=== PATIENT | female | born 1995 | race Caucasian/White ===

== ENCOUNTER 2019-11-13 00:26 | Emergency (ER) | payer MEDICAID, SELFPAY ==
[2019-11-13 00:52] VITALS: BP 126/83; PULSE 111; RESP 18; TEMP 36.8; O2SAT 98
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
[2019-11-13 02:16] VITALS: BP 122/80; PULSE 103; RESP 20; O2SAT 99
== END 2019-11-13 02:44 | disposition home or self-care (01) ==
PROVIDERS: Emergency Provider Emergency Medicine
DX: S00.83XA Contusion of other part of head, initial encounter (principal); Y04.2XXA Assault by strike against or bumped into by another person, initial encounter; F17.210 Nicotine dependence, cigarettes, uncomplicated
CPT/HCPCS: 12345; 70486; 99282

== ENCOUNTER → 2020-06-27 18:25 | Outpatient (BNVA) | payer MEDICAID, SELFPAY | PROVIDERS: Visit Provider Nurse Practitioner Family | DX: Z20.828 Contact with and (suspected) exposure to other viral communicable diseases (principal) | CPT/HCPCS: 87635 ==

== ENCOUNTER 2021-02-07 19:57 | Emergency (ER) | payer MEDICAID, SELFPAY ==
[2021-02-07 20:03] VITALS: BP 114/68; PULSE 93; RESP 16; TEMP 36.9; O2SAT 97; BMI 19.3
--- NOTE | 2021-02-07 20:08 | W.ED.EYEPROB ---
HPI - Eye Problem General: Chief complaint: Eye Problems Stated complaint: eye problems Time Seen by Provider: 02/07/21 20:02 History of Present Illness: HPI Narrative: Patient is a 25-year-old female comes to the ED with left eye redness and pain. Patient says around 4:00 in the morning last night she woke up and she eye and says it was burning a little bit. Today her eyes been red and painful and she describes the pain as a burning pain. Denies any itching of her eye. She says the burning pain is on the lateral aspect of the left eye. She reports rubbing on the eye all day today. Denies any foreign body getting into her eye. Patient did say she has some poison rafaela on her right foot and is unsure if maybe she transferred some poison rafaela from her foot up to her eye. Her eye has been watering a lot given her some blurry vision but denies any other vision changes. Patient says she has a pruritic rash on her right foot since from poison rafaela after being outside and coming in contact with that couple days ago. Associated symptoms: Denies fever(s), headache(s), nausea, neck pain or vomiting Review of Systems Const: Denies: fever(s), chills or fatigue Eyes: Reports: blurry vision (due to eye watering), eye discomfort and eye redness; Denies: change in vision ENMT: Denies: throat pain, odynophagia, nasal discharge or nasal congestion Card: Denies: chest pain, palpitations, edema, swelling of feet/ankles, dyspnea on exertion or orthopnea Resp: Denies: dyspnea, productive cough or non-productive cough GI: Denies: abdominal pain, nausea, vomiting, diarrhea, constipation or hematochezia : Denies: flank pain, dysuria or hematuria Musc: Denies: neck pain, back pain or extremity swelling Skin/Breast: Reports: rash (Pruritic rash on right foot after coming in contact with poison rafaela) and pruritus; Denies: new lesions Neuro: Denies: headache(s), numbness in extremities or weakness in extremities PFS ED PFSH: Social History Smoking and tobacco status: current every day smoker Female Reproductive History: Date of last menstrual period: 10/14/19 Physical Exam Const: COMMON NORMALS: no acute distress, patient oriented x3, healthy appearing and alert GENERAL APPEARANCE: cooperative and comfortable HENMT: COMMON NORMALS: normocephalic HEAD & SCALP: normocephalic MOUTH: Normal oral and palatal mucosa present THROAT: posterior oropharynx normal and uvula midline Eye: COMMON NORMALS: Equal, round and reactive pupils present and EOMs intact bilaterally PERIORBITAL: periorbital findings normal EYELID: eyelids normal CONJUNCTIVA: Yes conjunctival abnormal positive left conjunctival injection diffuse PUPIL: Yes Equal, round and reactive pupils present SLIT LAMP EXAM: Yes slit lamp exam performed with fluorescein OTHER: Lamp exam with fluorescein was performed and it did show a corneal abrasion. Neck/C-Spine: COMMON NORMALS: supple GENERAL: Yes normal visual inspection Resp: COMMON NORMALS: normal respiratory effort, No retractions, No use of accessory muscles and clear to auscultation bilaterally AUSCULTATION: clear to auscultation bilaterally Cardio: COMMON NORMALS: regular rate, regular rhythm, S1 normal heart sound present, S2 normal heart sound present, No gallops present (Cardio), No clicks present (Cardio), No murmurs present (Cardio) and Peripheral pulses 2+ throughout RATE: regular rate RHYTHM: regular rhythm HEART SOUNDS: S1 normal heart sound present and S2 normal heart sound present PERIPHERAL PULSES: Peripheral pulses 2+ throughout GI: COMMON NORMALS: Normal to inspection, nondistended, normoactive bowel sounds present, Soft to palpation, non-tender and no masses PALPATION: Yes Soft to palpation : COMMON NORMALS: Yes no CVA tenderness BLADDER/KIDNEY EXAM: Yes no CVA tenderness Back/Pelvis: COMMON NORMALS: no CVA tenderness Extremity: COMMON NORMALS: normal to inspection Neuro: COMMON NORMALS: patient oriented x3 and moves all extremities SENSORIUM/ORIENTATION: Yes alert Skin: NARRATIVE SKIN EXAM: Patient has visible right pruritic rash that is linear appears to be poison rafaela on top of right foot. GENERAL SKIN EXAM: dry skin Course Vital Signs: Vital signs: Vital Signs Temperature 98.5 F 02/07/21 20:03 Pulse Rate 91 02/07/21 21:03 Respiratory Rate 17 02/07/21 21:03 Blood Pressure 104/65 02/07/21 21:03 Pulse Oximetry 100 02/07/21 21:03 MDM - Eye Problem MDM Narrative: Medical decision making narrative: Patient is a 25-year-old female comes to the ED with left eye redness and pain and poison rafaela on right foot. Patient's eye exam revealed a corneal abrasion and exam of right foot showed poison rafaela like rash. patient was given a dose of Maxitrol eye ointment and a shot of triamcinolone IM to treat poison rafaela while here in the ED. patient diagnosed with corneal abrasion and poison rafaela dermatitis. Patient was discharged home with a prescription for Maxitrol eye ointment and given the contact information for Dr[facility]. She was told to follow-up with Dr. De León on 48 hours or return to ED if worsening of symptoms. Patient understood and agreed with plan. Discharge Plan Discharge Patient Disposition: Home Clinical Impression: Poison rafaela dermatitis Corneal abrasion Qualifiers: Encounter type: initial encounter Laterality: left Qualified Code(s): S05.02XA - Injury of conjunctiva and corneal abrasion without foreign body, left eye, initial encounter Condition: Stable Prescriptions: New Maxitrol 3.5 mg/g-10,000 unit/g-0.1 % ointment 1 applic ophthalmic (eye) Q6H 7 Days Qty: 3.5 RF: 0 No Action Naprosyn 500 mg tablet 500 mg PO BID PRN (Reason: pain) Qty: 20 RF: 0 Discharge Orders: Discharge ED (Routine); Ordered 02/07/21 Ordered By: Luis M Motley Discharge Diet: Regular Discharge Activity: Resume usual activity Patient Instructions: Corneal Abrasion (ED), Poison Rafaela, [place], and [place] - Adult Activity Restrictions/Additional Instructions: Follow-up with medical provider as directed. If your pain is not improving or worsening symptoms after 48 hours return to the ED or contact Dr[facility]. Call Dr[facility] -phone number is [phone]. Address is [facility] [address] Jose G Swan. take medications as prescribed. Return to the ER or your medical provider if condition worsens. Please read and understand discharge instructions. If any questions, please ask. Coding Level of Care Code ED Global Director [employer] for Edna Fwlizz Exam Comprehensive
[2021-02-07] MEDS: eye irrigation 30 mL Btl EYE-LEFT (20:23)
[2021-02-07] MEDS: fluorescein 1 mg Strip EYE-LEFT (20:23)
[2021-02-07] MEDS: tetracaine 0.5% Op Soln 4 mL Btl 1 DROP EYE-LEFT (20:23)
[2021-02-07 21:03] VITALS: BP 104/65; PULSE 91; RESP 17; O2SAT 100
== END 2021-02-07 21:00 | disposition home or self-care (01) ==
PROVIDERS: Emergency Provider Physician Assistant
DX: S05.02XA Injury of conjunctiva and corneal abrasion without foreign body, left eye, initial encounter (principal); L23.7 Allergic contact dermatitis due to plants, except food; F17.210 Nicotine dependence, cigarettes, uncomplicated; X58.XXXA Exposure to other specified factors, initial encounter
CPT/HCPCS: 99283

== ENCOUNTER → 2022-09-27 14:00 | Outpatient (BNVA) | payer MEDICAID, SELFPAY | PROVIDERS: Visit Provider Obstetrics & Gynecology | DX: Z01.419 Encounter for gynecological examination (general) (routine) without abnormal findings (principal) | CPT/HCPCS: 87624 ==

== ENCOUNTER → 2022-12-23 13:32 | Outpatient (BNVA) | payer MEDICAID, SELFPAY | PROVIDERS: Visit Provider Obstetrics & Gynecology | DX: Z32.00 Encounter for pregnancy test, result unknown (principal) | CPT/HCPCS: 81025 ==

== ENCOUNTER → 2022-12-27 14:33 | Outpatient (BNVA) | payer MEDICAID, SELFPAY | PROVIDERS: Visit Provider Obstetrics & Gynecology | DX: Z34.90 Encounter for supervision of normal pregnancy, unspecified, unspecified trimester (principal) | CPT/HCPCS: 80307; 84315; 85027; 86592; 86762; 86803; 86850; 86900; 87086; 87340; 87806 ==

== ENCOUNTER → 2023-01-17 10:59 | Outpatient (BNVA) | payer MEDICAID, SELFPAY | PROVIDERS: Visit Provider Obstetrics & Gynecology | DX: Z36.87 Encounter for antenatal screening for uncertain dates (principal) | CPT/HCPCS: 76815 ==

== ENCOUNTER → 2023-02-01 14:00 | Outpatient (BNVA) | payer MEDICAID, SELFPAY | PROVIDERS: Visit Provider Obstetrics & Gynecology | DX: Z34.80 Encounter for supervision of other normal pregnancy, unspecified trimester (principal) | CPT/HCPCS: 81000; 87491; 87591 ==

== ENCOUNTER → 2023-02-23 13:22 | Outpatient (BNVA) | payer MEDICAID, SELFPAY | PROVIDERS: Visit Provider Obstetrics & Gynecology | DX: Z34.90 Encounter for supervision of normal pregnancy, unspecified, unspecified trimester (principal) | CPT/HCPCS: 76805 ==

== ENCOUNTER → 2023-03-20 13:39 | Outpatient (BNVA) | payer MEDICAID, SELFPAY | PROVIDERS: Visit Provider Nurse Practitioner Women's Health | DX: Z34.80 Encounter for supervision of other normal pregnancy, unspecified trimester (principal) | CPT/HCPCS: 81000 ==

== ENCOUNTER → 2023-04-18 09:28 | Outpatient (BNVA) | payer MEDICAID, SELFPAY | PROVIDERS: Visit Provider Obstetrics & Gynecology | DX: Z34.80 Encounter for supervision of other normal pregnancy, unspecified trimester (principal) | CPT/HCPCS: 81000; 82950; 85025 ==

== ENCOUNTER → 2023-05-01 13:31 | Outpatient (BNVA) | payer MEDICAID, SELFPAY | PROVIDERS: Visit Provider Nurse Practitioner Women's Health | DX: Z34.80 Encounter for supervision of other normal pregnancy, unspecified trimester (principal); Z98.891 History of uterine scar from previous surgery | CPT/HCPCS: 81000 ==

== ENCOUNTER → 2023-05-10 08:25 | Outpatient (BNVA) | payer MEDICAID, SELFPAY | PROVIDERS: Visit Provider Obstetrics & Gynecology | DX: Z34.80 Encounter for supervision of other normal pregnancy, unspecified trimester (principal) | CPT/HCPCS: 81000; 87491; 87591 ==

== ENCOUNTER → 2023-05-29 08:05 | Outpatient (BNVA) | payer MEDICAID, SELFPAY | PROVIDERS: Visit Provider Obstetrics & Gynecology | DX: Z34.80 Encounter for supervision of other normal pregnancy, unspecified trimester (principal) | CPT/HCPCS: 76816 ==

== ENCOUNTER → 2023-06-12 13:00 | Outpatient (BNVA) | payer MEDICAID, SELFPAY | PROVIDERS: Visit Provider Obstetrics & Gynecology | DX: Z34.80 Encounter for supervision of other normal pregnancy, unspecified trimester (principal) | CPT/HCPCS: 81000; 87081 ==

== ENCOUNTER → 2023-06-27 16:07 | Outpatient (BNVA) | payer MEDICAID, SELFPAY | PROVIDERS: Visit Provider Obstetrics & Gynecology | DX: Z34.80 Encounter for supervision of other normal pregnancy, unspecified trimester (principal) | CPT/HCPCS: 81000 ==

== ENCOUNTER → 2023-07-04 14:34 | Outpatient (BNVA) | payer MEDICAID, SELFPAY | PROVIDERS: Visit Provider Obstetrics & Gynecology | DX: Z34.80 Encounter for supervision of other normal pregnancy, unspecified trimester (principal) | CPT/HCPCS: 81000 ==

== ENCOUNTER 2023-07-08 21:48 | Inpatient (IN) | payer MEDICAID, SELFPAY ==
[2023-07-08] VITALS (26 sets, daily range): BP systolic 106–120; BP diastolic 54–79; PULSE 75–100; RESP 17; O2SAT 88–100; BMI 27.1
--- NOTE | 2023-07-08 22:51 | P.HP_ITS ---
Providers/Chief Complaint Admitting Physician: Rina Poe DO Primary FOREST MANAGEMENT TEACHER: Dr. Reyna Chief Complaint: Contractions HPI FOREST MANAGEMENT TEACHER History of Present Illness Rosemary Hodge is a 27 year old female G2, P1 at 40 weeks gestation with DAVID 07/08/2023 admitted to labor and delivery with complaints of contractions increasing in intensity onset 5 AM. Patient admits to good movement, denies leakage of fluid or vaginal bleeding. Patient has history of previous due to decreased heart rate and failure of the head to descend. Patient desires to and has been counseled on risks versus benefit. We have discussed possibility of emergency if heart rate decels or severe vaginal bleeding occurs. Patient understands. Present Details : 2 Para: 1 Labs Rubella: Immune RPR: Negative GBS: Negative Review of Systems Const: Denies: fever(s), change in appetite or fatigue Eyes: Denies: change in vision, blurry vision, blind spots, floaters or seeing flashes Card: Denies: palpitations, irregular heart rhythm, edema, lightheadedness, syncope or pre-syncope Resp: Denies: dyspnea or pain on inspiration GI: Denies: abdominal pain, nausea, vomiting, heartburn or GI cramping : Denies: difficulty voiding, dysuria, genital pruritis, vaginal odor, vaginal bleeding, vaginal discharge or other (contractions) Musc: Denies: back pain, limited range of motion or muscle cramps Skin/Breast: Denies: rash, pruritus, breast tenderness or nipple discharge Neuro: Denies: headache(s) or numbness in extremities Psych: Denies: anxiety, depression, mood swings or panic attacks Endo: Denies: polyuria, tired all the time or hot flashes Vinicius/Lymph: Denies: easy bruising or petechiae Medications/Allergies Home Medications Medication Instructions Recorded Confirmed Last Taken Type No Known Home Medications 12/27/22 07/08/23 Unknown History Allergies Allergy/AdvReac Type Severity Reaction Status Date / Time No Known Allergies Allergy Verified 07/08/23 21:07 PFSH FOREST MANAGEMENT TEACHER PFSH: Medical History Psychiatric care Family History Grandmother Diabetes Paternal Hypertension Paternal Stroke Maternal Denies family history of Colon cancer Ovarian cancer Heart disease Hyperlipidemia Breast cancer Uterine cancer Thyroid disease Social History Smoking and tobacco/nicotine status: current every day tobacco/nicotine user Other Female Reproductive History: Hx Age of Menarche: 16 Duration of menses: 6-7 days Date of Last Menstrual Period: 10/01/22 Cycle Length: 30 Menstrual flow: normal/abnormal: normal Menstrual History Comment: Irregular menstrual history due to Nexplanon placed 2016.. History of Depo- Provera injections from age [age]. Sexual History: How old were you when you first had sex?: 14 More than 5 What is your sexual preference?: Heterosexual Hx Sexually Transmitted Diseases: No History History History 2 Term 1 0 Miscarriages/Ectopic 0 Living Children 1 Care DAVID Calculator Estimated Delivery Date Method Current WG Current Estimate 07/08/23 LMP (Certain) 40w 0d Other Estimates 07/07/23 Ultrasound #1 40w 1d Expected Delivery Route/Plan Patient current plans to . Vitals/I&O/Wt Last Vital Signs Pulse 86 07/08/23 22:40 Resp 17 07/08/23 21:47 BP 114/69 07/08/23 22:40 O2 Del Method Room Air 07/08/23 21:59 Weight last 48 hrs Weight 85.729 kg Physical Exam Narrative: 27-year-old female Const: COMMON NORMALS: no acute distress, patient oriented x3, no limitations, healthy appearing and well nourished Cardio: COMMON NORMALS: regular rate and regular rhythm Back/Pelvis: OTHER: Abdomen?soft, gravid, no tenderness to palpation. Extremity: NARRATIVE EXTREMITY EXAM: No edema, negative Homans' sign. Results Labs OB ([facility]): Obstetrics US 05/29/23 Blood Type O Positive 12/27/22 Antibody Screen Negative 12/27/22 Hct 35.9 % (36-47) L 04/18/23 Hgb 11.80 g/dL (11.27-16.99) 04/18/23 Rho(D) Type Positive 12/27/22 Plt Count 235 10^3/cmm (157-399) 04/18/23 Hep Bs Antigen Non-reactive (Nonreactive) 12/27/22 Hepatitis C Antibody Non-reactive (Nonreactive) 12/27/22 Rubella IgG Antibody 8.1 IU/mL (0.0-10.0) 12/27/22 RPR Nonreactive (Nonreactive) 12/27/22 HIV 1&2 Ab & HIV 1 Ag Non-reactive (Non-Reactiv) 12/27/22 C.trachomatis RNA (TMA) Not detected (NOT DETECTED) N.gonorrhoeae RNA (TMA) Not detected (NOT DETECTED) T. vaginalis Amp RNA Not detected (NOT DETECTED) 05/10/23 Chlamydia/GC Comment See note 05/10/23 Gest Glucose Tolerance 114 mg/dL (70-139) 04/18/23 HCG, Qual Positive (Negative) H 12/23/22 Urine Opiates Screen Negative ng/mL (Negative) 12/27/22 Ur Barbiturates Screen Negative ng/mL (Negative) 12/27/22 Ur Phencyclidine Scrn Negative ng/mL (Negative) 12/27/22 Ur Amphetamines Screen Negative ng/mL (Negative) 12/27/22 U Benzodiazepines Scrn Negative ng/mL (Negative) 12/27/22 Urine Cocaine Screen Negative ng/mL (Negative) 12/27/22 U Marijuana (THC) Screen Negative ng/mL (Negative) 12/27/22 Micro Urine Specimen 12/27/22 Pap Smear Interpret See note 09/27/22 A&P Assessment and plan (1) 40 weeks gestation of : (2) Fundal height low for dates: Qualifiers: Trimester: third trimester Qualified Code(s): O26.843 - Uterine size- date discrepancy, third trimester (3) History of : Plans to Plan Admit to labor and delivery for management of the back. Patient has been counseled on possible delivery if nonreassuring monitoring or other factors indicate need for delivery. Attestations Medical Necessity Statement*: Admission to labor and delivery in early labor for . Coding Level of Care Code Acute Code for Chg Fwd Diagnoses 40 weeks gestation of Z3A.40 Fundal height low for dates in third trimester O26.843 Trimester: third trimester History of Z98.891
--- NOTE | 2023-07-08 23:04 | PC.NURSE ---
CALL PLACED AT THIS TIME TO VERIFY MEDICATIONS FOR PT. TELEPHARMACY SAID THEY WOULD VERIFY THEM NEXT. [id number]
[2023-07-08] MEDS: lactated ringers 1,000 ML 999 ML IV (23:05)
[2023-07-08 23:07] LABS: Basophils # 0.1 10^3/uL (0.0-0.1); Basophils % 0.4 %; Eosinophils # 0.2 10^3/uL (0.0-0.8); Hematocrit 34.4 % (36-47); Lymphocytes # 1.9 10^3/uL (0.8-4.8); Lymphocytes % 11.3 %; Mean Corpuscular Hemoglobin 29.1 pg (27-33); Mean Corpuscular Volume 85.6 fl (85-98); Mean Platelet Volume 10.8 fL (7.4-10.4); Monocytes # 1.5 10^3/uL (0.2-0.9); Monocytes % 8.9 %; Neutrophils # 12.69 10^3/uL (1.8-7.7); Neutrophils % 76.5 %; Nucleated Red Blood Cells % 0 %; Platelet Count 242 10^3/cmm (157-399); Red Blood Count 4.02 10^6/uL (3.85-5.65); Red Cell Distribution Width 13.8 % (12.1-15.1); White Blood Count 16.58 10^3/uL (3.29-11.43)
[2023-07-08] MEDS: ROPivacaine syringe 100 MG/50 ML SYRINGE 10 MG EPIDURAL (23:50)
--- NOTE | 2023-07-08 23:56 | ANES.PREANE2 ---
Pre-Anesthetic Assessment Height/Weight: Height 1.78 m Weight 85.729 kg Pulse Resp BP Pulse Ox O2 Del Method 80 17 115/62 100 Room Air 07/08/23 23:54 07/08/23 21:47 07/08/23 23:53 07/08/23 23:54 07/08/23 21:59 Familial anesthetic complications: none Was Beta Angella taken within 24 hours: N/A Was Clonidine taken within 24 hours: N/A Social Tobacco and No alcohol Exam alert, oriented x 3, clear to auscultation bilaterally and regular rate & rhythm Airway Submandibular: within normal limits Cervical ROM: within normal limits Mallampati: Class II Dentition: full Neuropsych Anxiety and Depression Anesthetic Plan ASA status: 2 Anesthesia: Regional (specify below) (Labor epidural) Medications/Allergies Home Medications Medication Instructions Recorded Confirmed Last Taken Type No Known Home Medications 12/27/22 07/08/23 Unknown History Allergies Allergy/AdvReac Type Severity Reaction Status Date / Time No Known Allergies Allergy Verified 07/08/23 21:07 [facility] Anesthesia Medical History Psychiatric care Family History Grandmother Diabetes Paternal Hypertension Paternal Stroke Maternal Denies family history of Colon cancer Ovarian cancer Heart disease Hyperlipidemia Breast cancer Uterine cancer Thyroid disease Social History Smoking and tobacco/nicotine status: current every day tobacco/nicotine user Female Reproductive History : 2 Data Anesthesia 07/08/23 23:00 Short CBC 07/08/23 Range/Units 23:00 WBC 16.58 H (3.29-11.43) 10^3/uL Hgb 11.70 (11.27-16.99) g/dL Hct 34.4 L (36-47) % MCV 85.6 (85-98) fl Plt Count 242 (157-399) 10^3/cmm Neut % (Auto) 76.5 % Neut # (Auto) 12.69 H (1.8-7.7) 10^3/uL Cardiac Studies: No Data to Display Anesthesia Procedures Epidural Time Out Performed: Yes Consents Signed: Procedure Consent Consent: requested by attending/covering physician, from patient, risks and benefits reviewed and patient agrees to proceed Lumbar Level: L3-L4 Epidural position: sitting Epidural procedure: sterile prep of area, 1% lidocaine to numb the area, 18 g needle, neg for paresthesia, test dose given, 1.5% xylocaine 1:200k epi, placed PCEA, no systemic response, sterile dressing applied and 0.2% Ropiavacaine @ mls/hr (10) Additional Comments: JOSEFA at 4cm, cath at 9cm, bolused 5mls of 2% lido
[2023-07-09] VITALS (69 sets, daily range): BP systolic 87–148; BP diastolic 51–77; PULSE 48–113; RESP 16–18; TEMP 36.2–36.8; O2SAT 99–100
[2023-07-09] MEDS: dextrose 5%-lactated ringers 1,000 ML 125 ML IV (00:04)
--- NOTE | 2023-07-09 04:16 | P.PN_ITS ---
WIC SITE COORDINATOR Subjective 2 Subjective: Interval history: 27-year-old G2, P1 at 40 weeks gestation previous currently in active labor with a trial for . Nursing staff report spontaneous rupture of membranes with clear fluid noted and cervix now 7 cm / 90%/-1 vertex presentation. EFM category 1 with contractions q. 2 to 3 minutes. Labor: Station: -1 Amniotic Membrane Status: Ruptured Monitor Mode: Palpation Contraction Pattern: Regular Vitals/I&O/Wt Last Vital Signs Pulse 93 07/09/23 04:14 Resp 17 07/08/23 21:47 BP 114/65 07/09/23 04:14 Pulse Ox 100 07/09/23 00:04 O2 Del Method Room Air 07/08/23 21:59 07/08/23 07/08/23 07/09/23 14:59 22:59 06:59 Intake Total 1000 / 1000 Balance 1000 / 1000 Weight last 48 hrs Weight 85.729 kg Physical Exam 2 Urinary Catheter Management: Garcia Latex: Cath Placed During This Visit: yes Urinary Catheter Date of Insertion: 07/09/23 Urinary Catheter Time of Insertion: 00:05 Data 07/08/23 23:00 A&P Assessment and plan (1) 40 weeks gestation of : (2) Fundal height low for dates: Qualifiers: Trimester: third trimester Qualified Code(s): O26.843 - Uterine size- date discrepancy, third trimester (3) History of : Plans to Plan Admit to labor and delivery for management of the back. Patient has been counseled on possible delivery if nonreassuring monitoring or other factors indicate need for delivery. Continue present care, anticipate delivery soon Attestations 2 Medical Necessity Statement*: Patient admitted to labor and delivery for management of and possible C- section. Coding Level of Care Code Acute Code for Chg Fwd Diagnoses 40 weeks gestation of Z3A.40 Fundal height low for dates in third trimester O26.843 Trimester: third trimester History of Z98.891
[2023-07-09] MEDS: ondansetron 2 mg/ML SDV 2 mL 4 MG IVP (04:52)
[2023-07-09] MEDS: lactated ringers 1,000 ML 999 ML IV (06:22)
[2023-07-09] MEDS: ROPivacaine syringe 100 MG/50 ML SYRINGE 10 MG EPIDURAL (06:59)
--- NOTE | 2023-07-09 08:37 | P.PCNOB_ITS ---
Delivery Note: Date of delivery: July 09, 2023 Pre-delivery diagnoses: 40-week gestation Previous Desires Post-delivery diagnoses: Same plus meconium stained fluid Procedure: of a viable male Op report anesthesia: Epidural Delivering Physician: Rina Poe DO Estimated blood loss (mL): 300 Findings: Viable male Post Delivery Diagnoses: Fundal height low for dates: Qualifiers: Trimester: third trimester Qualified Code(s): O26.843 - Uterine size-date discrepancy, third trimester Pre-Delivery Course: Patient admitted to labor and delivery for trial. She received 2 placements of Cytotec and had spontaneous rupture of membranes. Patient required no Pitocin for labor. Delivery: 27-year-old female delivered via V MARKY a viable male OA presentation followed by anterior and posterior shoulders with the remainder of the baby's body to follow. Robust cry was noted. DeLee suction of the oral and nasal pathways of 12 cc of dark meconium stained fluid. After delayed cord clamping the cord was clamped and cut and baby placed on mother's abdomen for bonding. Nursing staff evaluated and attended to baby. Three-vessel cord was noted Cord blood was drawn and handed off. The uterus was massaged and the placenta presented in a Cervantes presentation with trailing membranes. IV solution with Pitocin was started in a bolus manner. The uterus remained firm. The uterus and vaginal vault were explored and expressed of a few clots. A left labia laceration was repaired with 3-0 Vicryl. Good approximation and hemostasis was noted. The vaginal vault and perineum are intact. Uterus was once again palpated and noted to be firm. Mother and infant are both in stable and satisfactory condition Male ?7 pounds 13 ounces Apgars 8 9 Post-Delivery Status: Stable History History History 2 Term 1 0 Miscarriages/Ectopic 0 Living Children 1 A&P Assessment and plan (1) 40 weeks gestation of : (2) Fundal height low for dates: Qualifiers: Trimester: third trimester Qualified Code(s): O26.843 - Uterine size- date discrepancy, third trimester (3) History of : Plans to (4) Vaginal after , delivered, current hospitalization: Plan Admit to labor and delivery for management of the back. Patient has been counseled on possible delivery if nonreassuring monitoring or other factors indicate need for delivery. Continue present care, anticipate delivery soon care. Coding Level of Care Code Acute Code for Chg Fwd Diagnoses 40 weeks gestation of Z3A.40 Fundal height low for dates in third trimester O26.843 Trimester: third trimester History of Z98.891 Vaginal after , delivered, current hospitalization O34.219
[2023-07-09] MEDS: oxytocin 30 UNIT/500 ML BAG 600 UNIT IV (08:40)
[2023-07-09] MEDS: docusate sodium 100 mg Capsule PO ×2 (09:47→18:04)
[2023-07-09] MEDS: ibuprofen 800 mg tablet PO ×3 (09:47→20:13)
[2023-07-09] MEDS: prenatal vitamin Capsule 1 CAP PO (09:47)
[2023-07-09] MEDS: lanolin oint 7 gm 1 APPLIC TOPICAL (11:04)
[2023-07-09] MEDS: benzocaine-menthol 78 gm Canister 1 SPRAY TOPICAL (11:05)
--- NOTE | 2023-07-09 11:45 | ANE.PACU2 ---
Inpatient post-anesthesia follow up: Airway intact: Yes Vital signs: Temperature 97.2 F Pulse Rate 96 Respiratory Rate 16 Blood Pressure 117/69 Pulse Oximetry 100 Oxygen Delivery Me thod Room Air Oxygen Flow Rate Fraction of Inspir ed Oxygen Hydration adequate: Yes Nausea and vomiting: No Pain level: 2 Mental status: Baseline Epidural Start/End: Epidural Start Date: 07/08/23 Epidural Start Time: 23:30 Epidural End Date: 07/09/23 Epidural End Time: 08:37
[2023-07-09 20:31] LABS: Hematocrit 31.4 % (36-47); Mean Corpuscular HGB Conc 33.8 g/dL (30-55); Mean Corpuscular Hemoglobin 29.8 pg (27-33); Mean Corpuscular Volume 88.2 fl (85-98); Platelet Count 213 10^3/cmm (157-399); Red Blood Count 3.56 10^6/uL (3.85-5.65); Red Cell Distribution Width 13.9 % (12.1-15.1); White Blood Count 18.31 10^3/uL (3.29-11.43)
[2023-07-10 02:35] VITALS: BP 115/69; PULSE 80; O2SAT 98
[2023-07-10] MEDS: docusate sodium 100 mg Capsule PO (09:45)
[2023-07-10] MEDS: ibuprofen 800 mg tablet PO (09:45)
[2023-07-10] MEDS: prenatal vitamin Capsule 1 CAP PO (09:45)
[2023-07-10 09:50] VITALS: BP 108/64; PULSE 64; RESP 16; TEMP 36.7
--- NOTE | 2023-07-10 11:30 | PM.OBGYDC ---
Discharge Providers SUPERVISOR INTELLIGENCE ANALYST Date of Admission: 07/08/23 21:48 Date of Discharge: 07/10/23 Attending Provider at Admission: Rina Poe DO Attending Provider at Discharge: Rina Poe DO Diagnoses at Discharge Discharge Diagnosis (1) 40 weeks gestation of : Status: Acute (2) Fundal height low for dates: Status: Acute Qualifiers: Trimester: third trimester Qualified Code(s): O26.843 - Uterine size-date discrepancy, third trimester (3) History of : Status: Acute (4) Vaginal after , delivered, current hospitalization: Status: Acute Reason for Visit Reason for Visit: Contractions Hospital Course Hospital Course 27-year-old delivered via after onset of labor. Patient's labor progressed spontaneously without medication needed. Patient delivered via a viable male. Patient's stay has progressed well. Patient is ambulating tolerating a regular diet and caring for without nursing assistance. expectations and discharge orders have been reviewed to include no heavy lifting pushing or pulling no sex douching or tampons x 6 weeks. Patient was encouraged to continue her vitamins daily. Patient has been counseled to return to hospital if severe headaches chest pain shortness of breath or excessive vaginal bleeding occurs. Patient understands. Information Peripartum Data: Infant Delivery Method: Vaginal Physical Exam Back/Pelvis: OTHER: Abdomen?soft, fundus firm greater than 5 cm below umbilicus. Lochia light. Extremity: COMMON NORMALS: normal to inspection, no clubbing, cyanosis or edema, no calf tenderness and no pedal edema Urinary Catheter Management: Garcia Latex: Cath Placed During This Visit: yes Reason for Continuing Indwelling Catheter: Required Immobilization for Trauma or Surgery or Anesthesia Urinary Catheter Date of Insertion: 07/09/23 Urinary Catheter Time of Insertion: 00:05 History History History 2 Term 1 0 Miscarriages/Ectopic 0 Living Children 1 Discharge Data Studies Completed and Pending Laboratory Results WBC 18.31 10^3/uL (3.29-11.43) H 07/09/23 20:20 RBC 3.56 10^6/uL (3.85-5.65) L 07/09/23 20:20 Hgb 10.60 g/dL (11.27-16.99) L 07/09/23 20:20 Hct 31.4 % (36-47) L 07/09/23 20:20 MCV 88.2 fl (85-98) 07/09/23 20:20 MCH 29.8 pg (27-33) 07/09/23 20:20 MCHC 33.8 g/dL (30-55) 07/09/23 20:20 RDW 13.9 % (12.1-15.1) 07/09/23 20:20 Plt Count 213 10^3/cmm (157-399) 07/09/23 20:20 MPV 11.0 fL (7.4-10.4) H 07/09/23 20:20 Neut % (Auto) 76.5 % 07/08/23 23:00 Lymph % (Auto) 11.3 % 07/08/23 23:00 [place] % (Auto) 8.9 % 07/08/23 23:00 Eos % (Auto) 1.0 % 07/08/23 23:00 Baso % (Auto) 0.4 % 07/08/23 23:00 Neut # (Auto) 12.69 10^3/uL (1.8-7.7) H 07/08/23 23:00 Lymph # (Auto) 1.9 10^3/uL (0.8-4.8) 07/08/23 23:00 [place] # (Auto) 1.5 10^3/uL (0.2-0.9) H 07/08/23 23:00 Eos # (Auto) 0.2 10^3/uL (0.0-0.8) 07/08/23 23:00 Baso # (Auto) 0.1 10^3/uL (0.0-0.1) 07/08/23 23:00 Nucleated RBC % (auto) 0 % 07/08/23 23:00 Nucleated RBCs # 0.0 /100WBC 07/08/23 23:00 Vitals Last Vital Signs Temp 98.0 F 07/10/23 09:50 Pulse 64 07/10/23 09:50 Resp 16 07/10/23 09:50 BP 108/64 07/10/23 09:50 Pulse Ox 98 07/10/23 02:35 O2 Del Method Room Air 07/10/23 02:35 Results Labs OB ([facility]): Obstetrics US 05/29/23 Blood Type O Positive 12/27/22 Antibody Screen Negative 12/27/22 Hct 31.4 % (36-47) L 07/09/23 Hgb 10.60 g/dL (11.27-16.99) L 07/09/23 Rho(D) Type Positive 12/27/22 Plt Count 213 10^3/cmm (157-399) 07/09/23 Hep Bs Antigen Non-reactive (Nonreactive) 12/27/22 Hepatitis C Antibody Non-reactive (Nonreactive) 12/27/22 Rubella IgG Antibody 8.1 IU/mL (0.0-10.0) 12/27/22 RPR Nonreactive (Nonreactive) 12/27/22 HIV 1&2 Ab & HIV 1 Ag Non-reactive (Non-Reactiv) 12/27/22 C.trachomatis RNA (TMA) Not detected (NOT DETECTED) 05/10/23 N.gonorrhoeae RNA (TMA) Not detected (NOT DETECTED) 05/10/23 T. vaginalis Amp RNA Not detected (NOT DETECTED) 05/10/23 Chlamydia/GC Comment See note 05/10/23 Gest Glucose Tolerance 114 mg/dL (70-139) 04/18/23 HCG, Qual Positive (Negative) H 12/23/22 Urine Opiates Screen Negative ng/mL (Negative) 12/27/22 Ur Barbiturates Screen Negative ng/mL (Negative) 12/27/22 Ur Phencyclidine Scrn Negative ng/mL (Negative) 12/27/22 Ur Amphetamines Screen Negative ng/mL (Negative) 12/27/22 U Benzodiazepines Scrn Negative ng/mL (Negative) 12/27/22 Urine Cocaine Screen Negative ng/mL (Negative) 12/27/22 U Marijuana (THC) Screen Negative ng/mL (Negative) 12/27/22 Micro Urine Specimen 12/27/22 Pap Smear Interpret See note 09/27/22 Discharge Plan Discharge Patient Disposition: Home Condition: Stable Prescriptions: No Action No Known Home Medications Discharge Orders: Discharge Order (Routine); Ordered 07/10/23 Ordered By: Rina Poe Discharge Diet: Regular Discharge Activity: Increase activity as tolerated and Limit activity as instructed Patient Instructions: Depression (DC), Bleeding (DC), Preeclampsia and Eclampsia After Delivery (GEN), Hemorrhage (DC), OB Discharge Report, OB Food/Drug Interaction Guide, Opioid Safety, OB Home Care, OB Vaginal Deliveries - [facility] Assessment: 40-week gestation delivered by Asymptomatic anemia Plan of Treatment: Discharge to home Follow-up in 4 weeks Discharge Attestations SUPERVISOR INTELLIGENCE ANALYST Time Spent in Discharge Care*: less than 30 min Coding Level of Care Code Acute Code for Chg Fwd Diagnoses 40 weeks gestation of Z3A.40 Fundal height low for dates in third trimester O26.843 Trimester: third trimester History of Z98.891 Vaginal after , delivered, current hospitalization O34.219
[2023-07-10 13:00] VITALS: BP 136/84; PULSE 98; RESP 16; TEMP 36.7
== END 2023-07-10 13:13 | disposition home or self-care (01) | DRG 807 ==
LOC: OPOB 07-09 07:50 → OBGYN 07-09 07:51 → OPOB 07-09 07:52
PROVIDERS: Admitting Provider Obstetrics & Gynecology; Visit Provider Obstetrics & Gynecology
DX: O48.0 Post-term pregnancy (principal); Z37.0 Single live birth; Z3A.40 40 weeks gestation of pregnancy; O77.0 Labor and delivery complicated by meconium in amniotic fluid; O70.0 First degree perineal laceration during delivery; O34.211 Maternal care for low transverse scar from previous cesarean delivery; N85.8 Other specified noninflammatory disorders of uterus
CPT/HCPCS: 36415; 51702; 59025; 59409; 85025; 85027; 96374; 99211; J2405; J2590; J2795; J7120; J7121